=== PATIENT | male | born 1960 | race African-American/Black ===

== ENCOUNTER 2020-04-08 19:09 | Observation (INO) ==
[2020-04-08] MEDS ORDERED: DIPH/TET/ACEL PERT BOOSTER VACCINE 0.5 ML VIAL IM ONE (19:41)
[2020-04-08] MEDS ORDERED: THIAMINE INJ 100 MG, FOLIC ACID INJ 1 MG, MAGNESIUM SULF INJ 2 GM, MULTIVITAMIN INJ 10 ... IV ONE (19:41)
[2020-04-08 20:22] LABS: Basophils % 0.7 % (0.0-0.8); Eosinophils % 0.9 % (0.00-10.9); Hematocrit 43.5 VOL% (42.0-52.0); Immature Granulocytes % 0.2 %; Immature Granulocytes Absolute 0.01 #; Lymphocytes # 2.1 10*3/uL (1.4-4.0); Lymphocytes % 47.6 % (21.2-54.2); Mean Corpuscular HGB Conc 34.5 GM/DL (32-36); Mean Corpuscular Volume 102.4 FL (87-102); Mean Platelet Volume 10.7 FL (9.6-12.0); Monocytes % 7.7 % (1.7-12.7); Neutrophils % 42.9 % (38.7-73.9); Red Blood Count 4.25 MC/CUMM (3.8-5.5); Red Cell Distribution Width 12.6 % (9.3-17.3); White Blood Count 4.3 T/CUMM (4-12)
[2020-04-08 20:31] LABS: Platelet Count 79 T/CUMM (130-400)
[2020-04-08 20:34] LABS: INR 1.7; PT Patient Result 17.9 SECS (9.8-11.9)
[2020-04-08 21:13] LABS: Alanine Aminotransferase 37 U/L (16-61); Albumin 4.6 G/DL (3.4-5.0); Alkaline Phosphatase 96 U/L (45-117); Aspartate Amino Transferase 84 U/L (0-37); Bilirubin,Total < 0.39 MG/DL (0.2-1.0); Blood Urea Nitrogen 8 MG/DL (7-18); Calcium 8.7 MG/DL (8.5-10.1); Glucose 85 MG/DL (74-106); Osmolality,Calculated 277.3 MOS/KG (273-304); Total Protein 8.6 G/DL (6.4-8.3)
[2020-04-08 21:35] LABS: Estimated Glom Filtration Rate 0 ML/MIN
[2020-04-08 21:37] LABS: Apearance,Urine CLEAR (Clear); Bilirubin,Urine Negative (Negative); Blood, Urine Small mg/dL (Negative); Glucose,Urine (UA) Negative (Negative); Ketones,Urine Negative (Negative); Mucus,Urine Occasional /LPF (Occasional); Nitrite,Urine Negative (Negative); Protein,Urine 30 MG/DL; RBC,Urine <1 /HPF (0-4); Urine Color Yellow (Yellow); Urine Specific Gravity 1.014 (1.001-1.035); Urine Urobilinogen < 2.0 EU/DL (0.2-1.0); WBC,Urine 5 /HPF (0-6)
[2020-04-08 21:41] LABS: Barbiturates Screen,Urine Negative (Negative); Benzodiazepines Screen,Urine Negative (Negative); Cannabinoid Screen,Urine Negative (Negative); Opiate Screen,Urine Negative (Negative); Phencyclidine Screen,Urine Negative (Negative)
[2020-04-08] MEDS ORDERED: guaiFENesin/DM ER 600-30 MG TABLET PO PRN (22:03)
[2020-04-08] MEDS ORDERED: GLUCAGON 1 MG VIAL IM PRN (22:03)
[2020-04-08] MEDS ORDERED: hydrALAZINE 20 MG/1 ML VIAL IV PRN (22:03)
[2020-04-08] MEDS ORDERED: DOCUSATE SODIUM 100 MG CAPSULE PO PRN (22:03)
[2020-04-08] MEDS ORDERED: NICOTINE 21 MG/24 HR PATCH TRANSDERM PRN (22:03)
[2020-04-08] MEDS ORDERED: diphenhydrAMINE CAP 25 MG CAPSULE PO PRN (22:03)
[2020-04-08] MEDS ORDERED: DEXTROSE 50% 25 GM/50 ML VIAL IV PRN (22:03)
[2020-04-08] MEDS ORDERED: ZALEPLON 5 MG CAPSULE PO PRN (22:03)
[2020-04-08] MEDS ORDERED: TISSUE ADHESIVE 1 EACH APPLICATOR TOP ONE (22:04)
[2020-04-09] MEDS: ACETAMINOPHEN 325 MG TABLET PO PRN (00:18)
[2020-04-09 06:16] LABS: Basophils % 0.6 % (0.0-0.8); Eosinophils % 0.8 % (0.00-10.9); Hematocrit 36.1 VOL% (42.0-52.0); Hemoglobin 12.5 GM/DL (14.0-18.0); Immature Granulocytes % 0.4 %; Immature Granulocytes Absolute 0.02 #; Lymphocytes # 1.5 10*3/uL (1.4-4.0); Lymphocytes % 31.2 % (21.2-54.2); Mean Corpuscular HGB Conc 34.6 GM/DL (32-36); Mean Corpuscular Volume 103.1 FL (87-102); Mean Platelet Volume 10.5 FL (9.6-12.0); Monocytes % 8.2 % (1.7-12.7); Neutrophils % 58.8 % (38.7-73.9); Platelet Count 68 T/CUMM (130-400); Red Cell Distribution Width 12.6 % (9.3-17.3); White Blood Count 4.7 T/CUMM (4-12)
[2020-04-09 06:39] LABS: Calcium 8.3 MG/DL (8.5-10.1); Osmolality,Calculated 270.7 MOS/KG (273-304)
[2020-04-09] MEDS: FOLIC ACID 1 MG TABLET PO SCH ×2 (09:01→21:23)
[2020-04-09] MEDS: THIAMINE 100 MG TABLET PO SCH ×2 (09:01→21:23)
[2020-04-09] MEDS: PANTOPRAZOLE 40 MG TABLET PO SCH (09:01)
[2020-04-09] MEDS: MULTIVITAMIN (CENTRUM) TABLET PO SCH (09:01)
[2020-04-09] MEDS: ONDANSETRON 4 MG/2 ML VIAL IV PRN ×2 (09:14→19:09)
[2020-04-09] MEDS: LORazepam 2 MG/1 ML VIAL IV PRN ×2 (16:24→19:53)
[2020-04-09] MEDS: DEXTROSE 5% NACL 0.45% 1,000 ML IV SCH (17:12)
[2020-04-09 18:09] LABS: Apearance,Urine Slightly Hazy (Clear); Bilirubin,Urine Negative (Negative); Blood, Urine Moderate mg/dL (Negative); Glucose,Urine (UA) Negative (Negative); Hyaline Casts,Urine 7 /LPF (0-3); Ketones,Urine 20 mg/dL (Negative); Mucus,Urine Occasional /LPF (Occasional); Nitrite,Urine Negative (Negative); Protein,Urine 100 MG/DL; RBC,Urine 4 /HPF (0-4); Squamous Epithelial Cell,Urine Occasional /HPF (0-10); Urine Color Yellow (Yellow); Urine Specific Gravity 1.016 (1.001-1.035); Urine Urobilinogen < 2.0 EU/DL (0.2-1.0); WBC,Urine 3 /HPF (0-6)
[2020-04-09] MEDS: THIAMINE INJ 100 MG, FOLIC ACID INJ 1 MG, MULTIVITAMIN INJ 10 ML in SODIUM CHLORIDE 0.9... IV SCH (22:42)
[2020-04-09 22:57] LABS: Basophils % 0.3 % (0.0-0.8); Hemoglobin 11.5 GM/DL (14.0-18.0); Immature Granulocytes % 0.5 %; Immature Granulocytes Absolute 0.03 #; Lymphocytes # 0.8 10*3/uL (1.4-4.0); Lymphocytes % 12.7 % (21.2-54.2); Mean Corpuscular HGB Conc 34.8 GM/DL (32-36); Mean Corpuscular Volume 101.9 FL (87-102); Monocytes % 6.7 % (1.7-12.7); Neutrophils % 79.8 % (38.7-73.9); Platelet Count 62 T/CUMM (130-400); Red Blood Count 3.24 MC/CUMM (3.8-5.5); Red Cell Distribution Width 12.2 % (9.3-17.3); White Blood Count 6.6 T/CUMM (4-12)
[2020-04-10] MEDS: LORazepam 2 MG/1 ML VIAL IV PRN (00:08)
[2020-04-10] MEDS: DEXTROSE 5% NACL 0.45% 1,000 ML IV SCH ×3 (01:52→12:03)
[2020-04-10 04:19] LABS: Basophils % 0.4 % (0.0-0.8); Eosinophils % 0.4 % (0.00-10.9); Hematocrit 32.7 VOL% (42.0-52.0); Hemoglobin 11.2 GM/DL (14.0-18.0); Immature Granulocytes % 0.4 %; Immature Granulocytes Absolute 0.02 #; Lymphocytes # 0.8 10*3/uL (1.4-4.0); Lymphocytes % 16.9 % (21.2-54.2); Mean Corpuscular HGB Conc 34.3 GM/DL (32-36); Mean Corpuscular Volume 102.2 FL (87-102); Monocytes % 8.6 % (1.7-12.7); Neutrophils % 73.3 % (38.7-73.9); Platelet Count 57 T/CUMM (130-400); Red Cell Distribution Width 12.1 % (9.3-17.3); White Blood Count 4.8 T/CUMM (4-12)
[2020-04-10 04:32] LABS: Albumin 3.3 G/DL (3.4-5.0); Bilirubin,Total 0.9 MG/DL (0.2-1.0); Calcium 8.4 MG/DL (8.5-10.1); Osmolality,Calculated 265.2 MOS/KG (273-304); Total Protein 6.6 G/DL (6.4-8.3)
[2020-04-10] MEDS: THIAMINE 100 MG TABLET PO SCH ×2 (10:21→21:19)
[2020-04-10] MEDS: PANTOPRAZOLE 40 MG TABLET PO SCH (10:21)
[2020-04-10] MEDS: FOLIC ACID 1 MG TABLET PO SCH ×2 (10:21→21:19)
[2020-04-10] MEDS: MULTIVITAMIN (CENTRUM) TABLET PO SCH (10:21)
[2020-04-10] MEDS: ACETAMINOPHEN 325 MG TABLET PO PRN (10:22)
[2020-04-10] MEDS: THIAMINE INJ 100 MG, FOLIC ACID INJ 1 MG, MULTIVITAMIN INJ 10 ML in SODIUM CHLORIDE 0.9... IV SCH (21:16)
[2020-04-10] MEDS: levETIRAcetam 500 MG TABLET PO SCH (21:19)
[2020-04-11] MEDS: DEXTROSE 5% NACL 0.45% 1,000 ML IV SCH ×2 (02:35→09:04)
[2020-04-11 06:20] LABS: Basophils % 0.2 % (0.0-0.8); Eosinophils # 0.1 10*3/uL (0.0-0.87); Eosinophils % 1.4 % (0.00-10.9); Hematocrit 31.7 VOL% (42.0-52.0); Hemoglobin 11.1 GM/DL (14.0-18.0); Immature Granulocytes % 0.2 %; Immature Granulocytes Absolute 0.01 #; Lymphocytes # 0.9 10*3/uL (1.4-4.0); Mean Corpuscular Volume 101.9 FL (87-102); Mean Platelet Volume 11.4 FL (9.6-12.0); Neutrophils % 65.2 % (38.7-73.9); Red Blood Count 3.11 MC/CUMM (3.8-5.5); Red Cell Distribution Width 11.6 % (9.3-17.3); White Blood Count 4.2 T/CUMM (4-12)
[2020-04-11 06:55] LABS: Calcium 8.8 MG/DL (8.5-10.1); Osmolality,Calculated 257.7 MOS/KG (273-304)
[2020-04-11 07:15] LABS: Platelet Count 57 T/CUMM (130-400)
[2020-04-11] MEDS: THIAMINE 100 MG TABLET PO SCH (09:04)
[2020-04-11] MEDS: levETIRAcetam 500 MG TABLET PO SCH (09:04)
[2020-04-11] MEDS: PANTOPRAZOLE 40 MG TABLET PO SCH (09:04)
[2020-04-11] MEDS: MULTIVITAMIN (CENTRUM) TABLET PO SCH (09:04)
[2020-04-11] MEDS: FOLIC ACID 1 MG TABLET PO SCH (09:04)
[2020-04-11 17:08] VITALS: BP 135/77
== END 2020-04-11 18:34 | disposition home or self-care (01) ==
LOC: N.ED 19:09 → N.EDINP 19:09 → SUATTDRO 22:21 → N.3E 23:42 → N.CVR 04-09 16:40 → N.3E 04-10 16:59
PROVIDERS: ADMIT Internal Medicine; ATTEND Emergency Medicine